=== PATIENT | male | born 1995 | race Caucasian/White ===

== ENCOUNTER 2020-06-07 17:57 | Inpatient (IN) | payer MEDICAID, OTHER ==
[2020-06-07 18:47] LABS: Amphetamine Screen,Urine Not Detected (NotDetected); Barbiturate Screen,Urine Not Detected (NotDetected); Benzodiazepines Screen,Urine Not Detected (NotDetected); Cocaine Screen,Urine Not Detected (NotDetected); Methadone Screen, Urine Not Detected (NotDetected); Opiate Screen,Urine Not Detected (NotDetected); Oxycodone Screen, Urine Not Detected (NotDetected); Phencyclidine Screen,Urine Not Detected (NotDetected); Tricyclic Antidepressant,Urine Not Detected (NotDetected); Urn Cannabinoid Scrn Detected (NotDetected)
[2020-06-07] MEDS ORDERED: ZIPRASIDONE 20 MG VIAL IM PRN (20:42)
[2020-06-07] MEDS ORDERED: LORazepam 1 MG TAB PO PRN (20:42)
[2020-06-07] MEDS ORDERED: MAGNESIUM HYDROXIDE 2,400 MG/10 ML CUP PO PRN (20:42)
[2020-06-07] MEDS ORDERED: MAG HYDROX/AL HYDROX/SIMETH 30 ML CUP PO PRN (20:42)
[2020-06-07] MEDS ORDERED: ACETAMINOPHEN TAB 325 MG TAB PO PRN (20:42)
[2020-06-07] MEDS ORDERED: LORazepam 2 MG/ML INJ IM PRN (20:45)
--- NOTE | 2020-06-07 21:39 | ED ---
Psych HPI - General Chief Complaint: Psychiatric Symptoms Stated Complaint: EPS eval Time Seen by Provider: 06/07/20 18:28 Source: patient, police Mode of arrival: ambulatory - History of Present Illness Initial Comments: Patient is a 25-year-old male presents emergency department after he was found inside someone's house. The homeowner did not know who the patient was and the refore called police. Police then brought the patient into the emergency room for evaluation. Patient states that he does know depression. States that it is his "his lover". States he "followed his heart to find him." Patient states that he recently moved here from [place]. Admits to smoking marijuana however does not use any other drugs. Denies a psychiatric history however the patient was hospitalized at [facility] for the past 90 days. Patient states that he communicates telepathically. States that we all have these abilities - Related Data Home Medications Medication Instructions Recorded Confirmed No Known Home Medications 06/07/20 06/07/20 Allergies Allergy/AdvReac Type Severity Reaction Status Date / Time No Known Allergies Allergy Verified 06/07/20 19:06 Review of Systems ROS Statement: Those systems with pertinent positive or pertinent negative responses have been documented in the HPI. ROS Other: All systems not noted in ROS Statement are negative. Past Medical History Past Medical History: No Reported History History of Any Multi-Drug Resistant Organisms: None Reported Past Surgical History: No Surgical Hx Reported Past Psychological History: No Psychological Hx Reported Smoking Status: Current every day smoker Past Alcohol Use History: Occasional Past Drug Use History: Marijuana General Exam Limitations: no limitations Course Vital Signs 06/07/20 18:00 Temperature 98.2 F Pulse Rate 100 Respiratory 16 Rate Blood Pressure 161/105 O2 Sat by Pulse 99 Oximetry Medical Decision Making - Medical Decision Making Upon arrival the patient is placed into room 24. A thorough evaluation was performed. Patient is petitioned. Alejandra her vacation. Patient does require admission. He was then taken to floor in stable condition - Lab Data Lab Results 06/07/20 Range/Units 18:16 Urine Opiates Screen Not Detected (NotDetected) Ur Oxycodone Screen Not Detected (NotDetected) Urine Methadone Screen Not Detected (NotDetected) Ur Propoxyphene Screen Not Detected (NotDetected) Ur Barbiturates Screen Not Detected (NotDetected) U Tricyclic Antidepress Not Detected (NotDetected) Ur Phencyclidine Scrn Not Detected (NotDetected) Ur Amphetamines Screen Not Detected (NotDetected) U Methamphetamines Scrn Not Detected (NotDetected) U Benzodiazepines Scrn Not Detected (NotDetected) Urine Cocaine Screen Not Detected (NotDetected) U Marijuana (THC) Screen Detected H (NotDetected)
--- NOTE | 2020-06-08 00:38 | P.MDCNMH ---
History of Present Illness H&P Date: 06/07/20 Chief Complaint: medical evaluation 25 year old male with no significant past medical history patient claims that there is nothing wrong with him, and that he is just discovering new abilities, since a spiritual snake has got into his eyes. per ED notes, he was found at some random persons house,, who notified police to pick the patient up. patient claims that he followed some telepathic clues to find someone. patient at this time denies any medical complaints and claims that it is a mistake to keep him here. he denies any fever, chills, nausea ,vomiting, SOB, chest pain, or abd pain . Review of Systems Pertinent positives as noted in HPI. All other systems were reviewed and are negative Past Medical History Past Medical History: No Reported History Additional Past Medical History / Comment(s): Blind in right eye History of Any Multi-Drug Resistant Organisms: None Reported Past Surgical History: No Surgical Hx Reported Smoking Status: Current every day smoker - Past Family History FAMILY Family Medical History: No Reported History Medications and Allergies Home Medications Medication Instructions Recorded Confirmed Type No Known Home Medications 06/07/20 06/07/20 History Allergies Allergy/AdvReac Type Severity Reaction Status Date / Time No Known Allergies Allergy Verified 06/07/20 19:06 Physical Exam Vitals: Vital Signs Temp Pulse Pulse Resp BP BP Pulse Ox 06/07/20 21:34 98.2 F 96 18 124/86 06/07/20 18:00 98.2 F 100 16 161/105 99 Intake and Output 06/07/20 06/07/20 06/08/20 14:59 22:59 06:59 Other: Weight 76.657 kg Constitutional: No acute distress, conversant, pleasant Eyes: Anicteric sclerae, moist conjunctiva, Pupils equal round reactive to light ENMT: NC/AT Oropharynx clear, no erythema, OR exudates Neck: Supple, FROM, no masses, or JVD No carotid bruits No thyromegaly Lungs: Clear to auscultation Clear to percussion Normal respiratory effort, no accessory muscle use Cardiovascular: Heart regular in rate and rhythm, No murmurs, gallops, or rubs No peripheral edema Abdominal: Soft Nontender, no guarding, rebound or rigidity Abdomen moving with respiration Normoactive bowel sounds No hepatomegaly, No splenomegaly No palpable mass No abdominal wall hernia noted Skin: Normal temperature, tone, texture, turgor No induration No subcutaneous nodules No rash, lesions No ulcers Extremities: No digital cyanosis No clubbing Pedal pulses intact and symmetrical Radial pulses intact and symmetrical No calf tenderness Psychiatric: Alert and oriented to person, place and time Appropriate affect fair judgement Neuro Muscles Strength 5/5 in all 4 extremities Sensation to light touch grossly present throughout Cranial nerves II-XII grossly intact No focal sensory deficits Lymphatics: no palpable cervical or supraclavicular , or inguinal lymph nodes Cranial Nerve Examination - Cranial Nerves Cranial Nerve II- Optic: Intact Cranial Nerve III- Oculomotor: Intact Cranial Nerve IV- Trochlear: Intact Cranial Nerve V- Trigeminal: Intact Cranial Nerve - Abducens: Intact Cranial Nerve VII- Facial: Intact Cranial Nerve VIII- Auditory: Intact Cranial Nerve IX- Glossopharyngeal: Intact Cranial Nerve X- Vagus: Intact Cranial Nerve XI- Accessory: Intact Cranial Nerve XII- Hypoglossal: Intact Results Labs: Abnormal Lab Results - Last 24 Hours (Table) 06/07/20 Range/Units 18:16 U Marijuana (THC) Screen Detected H (NotDetected) Assessment and Plan Assessment: DELUSIONAL ideation management per psych tobacco smoking counseled to quit smoking nicotine replacement therapy offered follow up labs Thank you for allowing us to participate in the care of this patient. We will follow peripherally. Do not hesitate to contact us with questions. Someone can be reached from the [facility] hospitalist group at all hours of the day at [phone].
[2020-06-08] MEDS ORDERED: NICOTINE POLACRILEX 2 MG GUM BUCCAL PRN (11:37)
--- NOTE | 2020-06-08 11:38 | P.HP ---
Psychiatric H&P - . H&P Date: 06/08/20 History & Physical: Allergies Allergy/AdvReac Type Severity Reaction Status Date / Time No Known Allergies Allergy Verified 06/07/20 19:06 Vital Signs Temp 98.4 F 06/08/20 06:23 Pulse 86 06/08/20 06:23 Resp 16 06/08/20 06:23 BP 121/76 06/08/20 06:23 Pulse Ox 99 06/07/20 18:00 Intake & Output 06/07/20 06/08/20 06/08/20 18:59 06:59 18:59 Weight 74.843 kg 76.657 kg Laboratory Last Values Urine Opiates Screen Not Detected (NotDetected) 06/07/20 18:16 Ur Oxycodone Screen Not Detected (NotDetected) 06/07/20 18:16 Urine Methadone Screen Not Detected (NotDetected) 06/07/20 18:16 Ur Propoxyphene Screen Not Detected (NotDetected) 06/07/20 18:16 Ur Barbiturates Screen Not Detected (NotDetected) 06/07/20 18:16 U Tricyclic Antidepress Not Detected (NotDetected) 06/07/20 18:16 Ur Phencyclidine Scrn Not Detected (NotDetected) 06/07/20 18:16 Ur Amphetamines Screen Not Detected (NotDetected) 06/07/20 18:16 U Methamphetamines Scrn Not Detected (NotDetected) 06/07/20 18:16 U Benzodiazepines Scrn Not Detected (NotDetected) 06/07/20 18:16 Urine Cocaine Screen Not Detected (NotDetected) 06/07/20 18:16 U Marijuana (THC) Screen Detected (NotDetected) H 06/07/20 18:16 06/08/20 11:30 IDENTIFYING DATA: Patient is a 25-year-old male who currently lives alone in his car and has no kids and is unmarried. HPI: Patient presented to the hospital yesterday after he was petitioned and brought in by a border police. Patient was apparently found inside someone's house and the homeowner didn't know who he was and called the police. Patient apparently was bizarre in the ER and spoke about "communicating telepathically". Patient was positive for marijuana in his urine drug screen. Patient was admitted involuntarily on petition and certificate. 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 Patient appeared to be responding to internal stimuli staring around the room at different objects. He states that "I'm working" when asked why he is looking at different parts of the room. Patient had bizarre blank stares at telegraphic typewriter installer. He was somewhat irritable and was illogical, bizarre. He had loose associations. He spoke about "following the voice from my heart to my love". Which is why he was led to the house that he got too. He states that the voice was "giving me directions "left "right". He states that he was trying to find "Jet" and claims that he found him but was told that he had to wait. He states that he does not know why he is in the hospital and was asking about discharge. Patient had poor insight and judgment. He spoke about telegraphic typewriter installer "being in my head" and also communicating telepathically through a seed. He states that his aunt is in love with him. He also claims that he isn't "alien from Eduardo's". He claims his sleep has been poor and appetite is poor. Patient denies any suicidal or homicidal ideations intent or plan. At this time patient denies any auditory or visual hallucinations. Patient admits to using marijuana daily and also claims that he smokes cigarettes daily. He claims that he uses occasional alcohol. He denies any other recreational drug use. PAST PSYCHIATRIC HISTORY: Patient states that he has had several other psychiatric admissions however only spoke about being admitted to "[facility] when I was younger". Patient listed several medications in the past however claims that he is not on any medications. He claims that he used to take lithium, Risperdal, Concerta and Ativan. Patient denies any psychiatric outpatient follow-up. Patient claimed that he has had multiple suicide attempts in the past. PMH:denies ALLERGIES: as per EMR CHEMICAL DEPENDENCY HISTORY: as per HPI FAMILY PSYCHIATRIC/SUBSTANCE USE HISTORY: The same that his mother has mental illness however does not know what. SOCIAL HISTORY: Patient was born and raised in [facility] and then claims that he does not know where he lives now. Patient claims that he lives in his car alone is unmarried has no kids. 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 He states that he was in retirement when he was 20 years old for drug- related charges. MENTAL STATUS EXAM: General Appearance: Patient appears to be stated age is tall/thin, alert, responding to internal stimuli, irritable. Patient appears to have poor hygiene and grooming. Behavior: Patient is seated without any agitated behavior. Irritable. Bizarre Speech: Patient's speech is fluent and nonpressured. Mood/Affect: Patient reports their mood is "okay", affect is congruent and constricted. Suicidality/Homicidality: Patient denies having any homicidal ideation intent or plan. Denies any suicidal ideations intent or plan Perceptions: Patient denies any visual hallucinations and denies any auditory hallucinations Though content/process: Patient endorses several delusions, bizarre content, illogical loose associations. Memory and concentration: AOX3, grossly intact for the purposes of this session. Can spell "WORLD" backwards Judgment and insight: poor STRENGTHS/WEAKNESSES: strength is that patient is resilient. Weakness is that patient has poor judgment and is impulsive INTELLECT: average IMPRESSIONS: Psychosis unspecified, rule out cannabis-induced psychosis Cannabis use disorder He continued dependence PLAN: -Patient is admitted under involuntary status to [facility] for stabilization of psychiatric symptoms and safety. Patient has signed adult voluntary form and medication consent and is placed in patient's chart. A second certification was completed and along with petition will be filed for court. -Medications : Will start patient on Risperdal 1 mg twice a day for psychosis. -Ativan and Geodon PRN for agitation/aggression -Patient was counselled on substance abuse and patient claims that "I don't need to do drugs anymore". -Patient was informed of the risks, benefits and side effects of the medication and patient verbally consented to taking the medications. Patient signed med consent form and was placed in chart. -Internal Medicine consult to perform medical evaluation and physical. -NRT - nicotine gum -SW on board for discharge planning. Encourage patient to participate in groups to work on coping skills. 06/08/20 11:38
[2020-06-08 12:02] LABS: Basophils % (A) 0 %; Eosinophils # (A) 0.1 k/uL (0-0.7); Eosinophils % (A) 1 %; HCT 49.7 % (39.0-53.0); HGB 16.2 gm/dL (13.0-17.5); Lymphocytes # (A) 1.8 k/uL (1.0-4.8); Lymphocytes % (A) 21 %; MCH 28.3 pg (25.0-35.0); MCHC 32.6 g/dL (31.0-37.0); MCV 86.6 fL (80.0-100.0); Mean Platelet Volume 7.3; Monocytes # (A) 0.6 k/uL (0-1.0); Monocytes % (A) 7 %; Neutrophils # (A) 6.2 k/uL (1.3-7.7); Neutrophils % (A) 70 %; Platelet Count 245 k/uL (150-450); RBC 5.74 m/uL (4.30-5.90); RDW 13.4 % (11.5-15.5); WBC 8.8 k/uL (3.8-10.6)
[2020-06-08] MEDS: risperiDONE 1 MG TAB PO SCH ×2 (12:18→20:16)
[2020-06-08 12:22] LABS: ALT 12 U/L (4-49); AST 21 U/L (17-59); African American GFR (CKD) >90 (>60 ml/min/1.73 sqM); Albumin 5.3 g/dL (3.5-5.0); Alkaline Phosphatase 67 U/L (38-126); Anion Gap 11 mmol/L; Blood Urea Nitrogen 13 mg/dL (9-20); Calcium 10.2 mg/dL (8.4-10.2); Carbon Dioxide 24 mmol/L (22-30); Chloride 102 mmol/L (98-107); Glucose 100 mg/dL (74-99); Non-African American GFR(CKD) >90 (>60 ml/min/1.73 sqM); Sodium 137 mmol/L (137-145); Total Bilirubin 1.4 mg/dL (0.2-1.3); Total Protein 8.1 g/dL (6.3-8.2)
[2020-06-08 13:07] LABS: Cholesterol 136 mg/dL (<200); HDL Cholesterol 46 mg/dL (40-60); LDL Cholesterol,Calculated 73 mg/dL (0-99); Triglycerides 85 mg/dL (<150)
[2020-06-08 23:13] LABS: Hemoglobin A1C 4.6 % (4.0-6.0)
[2020-06-09] MEDS: risperiDONE 1 MG TAB PO SCH (08:14)
--- NOTE | 2020-06-09 10:32 | P.PN ---
Progress Note - Text Progress Note Date: 06/09/20 Interval History: Patient was seen wandering the hallways and was directable and agreeable to sp naseemk with justowriter operator in the office. Patient claims that he has not been going to groups and claims that "it's not can help me" and also states that he knows everything in the groups already. He offered no new complaints except for feeling mildly lethargic today. He believes that the medications are making her feel calmer and was agreeable to take the Risperdal at nighttime. He states that he is hearing other people's thoughts in the unit and claims that he is also hearing justowriter operator's thoughts "telepathically". He attempted several times to stay out loud what justowriter operator was thinking. He claims that his mood is "fine" and his affect was constricted. He denies any anxiety today. He states that he slept well last night. He continues to have poor insight and judgment. At this time patient denies any suicidal or homical ideations, intent or plan. Patient denies any auditory, visual hallucinations. Mental Status Exam: General Appearance: Patient appears to be stated age is tall/thin, alert, i rritable. Patient appears to have poor hygiene and grooming. Behavior: Patient is seated without any agitated behavior. Irritable. Bizarre. not responding to internal stimuli today. Speech: Patient's speech is fluent and nonpressured. Mood/Affect: Patient reports their mood is "ok", affect is congruent and constricted. Suicidality/Homicidality: Patient denies having any homicidal ideation intent or plan. Denies any suicidal ideations intent or plan Perceptions: Patient denies any visual hallucinations and denies any auditory hallucinations Though content/process: Patient endorses several delusions, bizarre content, illogical loose associations. Memory and concentration: AOX3, grossly intact for the purposes of this session Judgment and insight: poor Assessment Psychosis unspecified, rule out cannabis-induced psychosis versus schizophrenia Cannabis use disorder He continued dependence Plan: -Patient continues to meet criteria for inpatient psychiatric admission for symptom stabilization and safety. Patient has not signed adult voluntary form and medication consent and was placed in patient's chart. currently awaiting deferral date and full court hearing date. -Medications: Change Risperdal to 2 mg daily at bedtime for psychosis. -When necessary Ativan and Geodon for agitation/aggression. -NRT - nicotine gum -SW on board for discharge planning. Encouraged the patient to participate in milieu.
[2020-06-09] MEDS ORDERED: risperiDONE 2 MG TAB PO SCH (21:00)
[2020-06-10 07:01] VITALS: RESP 16
--- NOTE | 2020-06-10 11:23 | P.PN ---
Progress Note - Text Progress Note Date: 06/10/20 Interval History: Patient was seen taking part in group today and was directable and agreeable to speak with poem writer in the office. Patient offered no new complaints today. He states he is able to sleep better last night. He states that he feels less lethargic during the day. He appears to have mildly improved and in his insight and judgment. When asked about his telepathic medication patient states that "I don't believe in it anymore". He claims that he has been trying to go to groups and per to spend this as he can. He claims that his mood is "fine" and his affect was constricted. He denies any anxiety today. He states that he slept well last night. He continues to have poor insight and judgment. At this time patient denies any suicidal or homical ideations, intent or plan. Patient denies any auditory, visual hallucinations. Mental Status Exam: General Appearance: Patient appears to be stated age is tall/thin, alert, more cooperative today. Patient appears to have improving hygiene and grooming. Behavior: Patient is seated without any agitated behavior. Less bizarre and attempts to cooperate. Speech: Patient's speech is fluent and nonpressured. Mood/Affect: Patient reports their mood is "good", affect is congruent and constricted. Suicidality/Homicidality: Patient denies having any homicidal ideation intent or plan. Denies any suicidal ideations intent or plan Perceptions: Patient denies any visual hallucinations and denies any auditory hallucinations Though content/process: Patient is less delusional today, preoccupied with discharge. Memory and concentration: AOX3, grossly intact for the purposes of this session Judgment and insight: poor, improving mildly Assessment Psychosis unspecified, rule out cannabis-induced psychosis versus schizophrenia Cannabis use disorder He continued dependence Plan: -Patient continues to meet criteria for inpatient psychiatric admission for symptom stabilization and safety. Patient has not signed adult voluntary form and medication consent and was placed in patient's chart. currently awaiting deferral date and full court hearing date. -Medications: Increased Risperdal to 2.5 mg daily at bedtime for psychosis. -When necessary Ativan and Geodon for agitation/aggression. -NRT - nicotine gum -SW on board for discharge planning. Encouraged the patient to participate in milieu. Likely discharge early next week.
[2020-06-10] MEDS ORDERED: risperiDONE 1 MG TAB PO SCH (21:00)
--- NOTE | 2020-06-11 10:10 | P.PN ---
Progress Note - Text Progress Note Date: 06/11/20 Interval History: Patient was seen taking part in group today and was directable and agreeable to speak with law writer in the office. Patient offered no new complaints today he states that he is doing better overall. He claims that his thoughts are calmer and he feels that he is thinking more "clearly".. He states he is able to sleep better last night. He states that he feels less lethargic during the day. He appears to have mildly improved and in his insight and judgment. She spoke vaguely about "changing the world" and also that he wants to "help people". He also states that he helped law writer in his brain and when asked how he today states that "I went into your brain and fixed you".. He claims that he has been trying to go to groups and per to spend this as he can. He claims that his mood is "fine" and his affect was constricted. He denies any anxiety today. He states that he slept well last night. At this time patient denies any suicidal or homical ideations, intent or plan. Patient denies any auditory, visual hallucinations. Mental Status Exam: General Appearance: Patient appears to be stated age is tall/thin, alert, more cooperative today. Patient appears to have improving hygiene and grooming. Behavior: Patient is seated without any agitated behavior. Less bizarre and attempts to cooperate. Speech: Patient's speech is fluent and nonpressured. Mood/Affect: Patient reports their mood is "ok", affect is congruent and constricted. Suicidality/Homicidality: Patient denies having any homicidal ideation intent or plan. Denies any suicidal ideations intent or plan Perceptions: Patient denies any visual hallucinations and denies any auditory hallucinations Though content/process: Patient is less delusional today, more logical, poverty of content. Memory and concentration: AOX3, grossly intact for the purposes of this session Judgment and insight: poor, improving mildly Assessment Psychosis unspecified, rule out cannabis-induced psychosis versus schizophrenia Cannabis use disorder He continued dependence Plan: -Patient continues to meet criteria for inpatient psychiatric admission for symptom stabilization and safety. Patient has not signed adult voluntary form and medication consent and was placed in patient's chart. currently awaiting deferral date and full court hearing date. -Medications: Increased Risperdal to 3 mg daily at bedtime for psychosis. -When necessary Ativan and Geodon for agitation/aggression. -NRT - nicotine gum -SW on board for discharge planning. Encouraged the patient to participate in milieu. Likely discharge early next week.
[2020-06-11] MEDS: risperiDONE 1 MG TAB PO SCH (20:16)
[2020-06-12 06:34] VITALS: BP 137/79; PULSE 77; TEMP 98.1
--- NOTE | 2020-06-12 11:57 | P.PN ---
Progress Note - Text Progress Note Date: 06/12/20 Interval History: Patient was seen wandering always this morning and was directable and agreeable to speak with medical writer in the office. Patient offered no new complaints today. He states that he is doing better overall. He appears to be less bizarre and is more goal oriented and have improvement in his thought process. He states he is able to sleep better last night on the current medications. He appears to have mildly improved and in his insight and judgment. He spoke more today about his discharge plan how he needs to go and get his car from the impound and also home will be going to his friend's house to see if he can stay with them. He claims that he has been trying to go to groups and per to spend this as he can. He claims that his mood is "fine" and his affect was constricted. He denies any anxiety today. At this time patient denies any suicidal or homical ideations, intent or plan. Patient denies any auditory, visual hallucinations. Mental Status Exam: General Appearance: Patient appears to be stated age is tall/thin, alert, more cooperative today. Patient appears to have improving hygiene and grooming. Behavior: Patient is seated without any agitated behavior. Less bizarre and attempts to cooperate. Speech: Patient's speech is fluent and nonpressured. Mood/Affect: Patient reports their mood is "fine", affect is congruent and constricted. Suicidality/Homicidality: Patient denies having any homicidal ideation intent or plan. Denies any suicidal ideations intent or plan Perceptions: Patient denies any visual hallucinations and denies any auditory hallucinations Though content/process: Patient is less delusional today, more logical, poverty of content. Memory and concentration: AOX3, grossly intact for the purposes of this session Judgment and insight: poor, improving mildly Assessment Psychosis unspecified, rule out cannabis-induced psychosis versus schizophrenia Cannabis use disorder He continued dependence Plan: -Patient continues to meet criteria for inpatient psychiatric admission for symptom stabilization and safety. Patient has not signed adult voluntary form and medication consent and was placed in patient's chart. currently awaiting deferral date and full court hearing date. -Medications: Continue with Risperdal to 3 mg daily at bedtime for psychosis. -When necessary Ativan and Geodon for agitation/aggression. -NRT - nicotine gum -SW on board for discharge planning. Encouraged the patient to participate in milieu. Likely discharge tomorrow if patient is able to sign deferral.
[2020-06-12] MEDS: risperiDONE 1 MG TAB PO SCH (20:03)
--- NOTE | 2020-06-13 09:23 | P.DS ---
Providers Date of admission: 06/07/20 20:38 Expected date of discharge: 06/13/20 Attending physician: Steven Ha MD Consults: 06/07/20 20:42 Consult Physician Routine Consulting Provider: Kady Fernandez Consult Reason/Comments: medical management Do you want consulting provider notified?: Yes Primary care physician: Stated None - Discharge Diagnosis(es) (1) Unspecified psychosis Current Visit: Yes Status: Acute Priority: High (2) Cannabis use disorder, mild, abuse Current Visit: Yes Status: Acute Priority: Medium (3) Nicotine dependence Current Visit: Yes Status: Acute Priority: Low Hospital Course: Admission HPI: Patient is a 25-year-old male who currently lives alone in his car and has no kids and is unmarried. Patient presented to the hospital yesterday after he was petitioned and brought in by a police records clerk. Patient was apparently found inside someone's house and the homeowner didn't know who he was and called the police. Patient apparently was bizarre in the ER and spoke about "communicating telepathically". Patient was positive for marijuana in his urine drug screen. Patient was admitted involuntarily on petition and certificate. 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 Patient appeared to be responding to internal stimuli staring around the room at different objects. He states that "I'm working" when asked why he is looking at different parts of the room. Patient had bizarre blank stares at gag writer. He was somewhat irritable and was illogical, bizarre. He had loose associations. He spoke about "following the voice from my heart to my love". Which is why he was led to the house that he got too. He states that the voice was "giving me directions "left "right". He states that he was trying to find "Jet" and claims that he found him but was told that he had to wait. He states that he does not know why he is in the hospital and was asking about discharge. Patient had poor insight and judgment. He spoke about gag writer "being in my head" and also communicating telepathically through a seed. He states that his aunt is in love with him. He also claims that he isn't "alien from Eduardo's". He claims his sleep has been poor and appetite is poor. Patient denies any suicidal or homicidal ideations intent or plan. At this time patient denies any auditory or visual hallucinations. Patient admits to using marijuana daily and also claims that he smokes cigarettes daily. He claims that he uses occasional alcohol. He denies any other recreational drug use. Hospital course: Upon admission to the unit patient was initially bizarre and grossly delusional, responding to internal stimuli. Patient was brought up on a petition and certificate involuntarily and a second clinical certificate was filed with the court and patient ended up deferring court and agreeing to treatment on the unit. Patient got along well with other patients on the unit and followed unit protocol. Patient was compliant with the medications and denied any side effects throughout hospital course. Patient was started on Risperdal and titrated up to a dose of 3 mg daily at bedtime for psychosis. PAtient was offered long activing injection however he claims that he would prefer to take t he medications orally at this time. Patient spoke of his stressors and engaged in therapy both group and individual. Patient was also seen by medical team for history and physical exam. Throughout the course of the hospitalization patient gradually improved with regards to mood, psychosis/delusions, sleep and became future oriented with improved insight and judgment. On the day of discharge naveen ent denied any suicidal or homicidal ideations intent or plan denied any auditory or visual hallucinations. Patient endorsed wanting to live for his future and his health. The patient denied any access to guns or weapons. Patient denied any paranoia and did not endorse any delusions. Patient does have a significant history of substance abuse and was counseled on abstaining from all substances including alcohol and marijuana. Patient was offered however declined inpatient substance-abuse rehab. Patient elected to do outpatient substance use treatment programs in the community. Patient was also counseled on the medications and need for regular compliance and was encouraged to follow-up with their outpatient appointment for mental health and also for primary care. Mental status exam: General Appearance: Patient appears to be tall, thin stated age is alert, directable, and cooperative. Patient is in no acute distress and has improved hygiene and grooming Behavior: Patient is calmly seated without any agitated behavior. Speech: Patient's speech is fluent and nonpressured. Mood/Affect: Patient reports their mood is "good", affect is congruent and euthymic. Suicidality/Homicidality: Patient denies having any suicidal or homicidal ideation intent or plan. Perceptions: Patient denies any auditory or visual hallucinations. Though content/process: Goal oriented, logical. Future oriented. Memory and concentration: AOX3, grossly intact for the purposes of this session. Can spell "WORLD" backwards correctly. Judgment and insight: chronically poor, however has improved with guarded prognosis Impression: Psychosis unspecified, rule out secondary to cannabis use versus schizophrenia Cannabis use disorder, mild Nicotine dependence Plan: -Continue with discharge today as patient has improved and stabilized psychiatrically and is not currently an imminent threat to himself and/or others. -Continue medications: Continue with Risperdal 3 mg daily at bedtime for psychosis. -Patient was counseled on the need for medication compliance and appropriate follow-up at mental health and also primary care for medical issues. Patient verbalized understanding and agreed. -Social work to help arrange patient's discharge today. Patient is currently homeless and will be referred to a residential. Patient will need help recovering his car from impound. Social work also to arrange for patients follow up appointments for psychiatric care along with follow up with primary care provider. -Patient counseled on abstaining from recreational drugs and marijuana and alcohol. Was informed/educated on the adverse effects on their physical and mental health. Patient verbally agreed and understood. Patient was offered substance abuse treatment however declined at this time. -Patient was instructed to return to the hospital or seek immediate medical care if their psychiatric or medical symptoms do worsen or reoccur. Allergies Allergy/AdvReac Type Severity Reaction Status Date / Time No Known Allergies Allergy Verified 06/07/20 19:06 Laboratory Results WBC 8.8 k/uL (3.8-10.6) 06/08/20 11:33 RBC 5.74 m/uL (4.30-5.90) 06/08/20 11:33 Hgb 16.2 gm/dL (13.0-17.5) 06/08/20 11:33 Hct 49.7 % (39.0-53.0) 06/08/20 11:33 MCV 86.6 fL (80.0-100.0) 06/08/20 11:33 MCH 28.3 pg (25.0-35.0) 06/08/20 11:33 MCHC 32.6 g/dL (31.0-37.0) 06/08/20 11:33 RDW 13.4 % (11.5-15.5) 06/08/20 11:33 Plt Count 245 k/uL (150-450) 06/08/20 11:33 Neutrophils % 70 % 06/08/20 11:33 Lymphocytes % 21 % 06/08/20 11:33 Monocytes % 7 % 06/08/20 11:33 Eosinophils % 1 % 06/08/20 11:33 Basophils % 0 % 06/08/20 11:33 Neutrophils # 6.2 k/uL (1.3-7.7) 06/08/20 11:33 Lymphocytes # 1.8 k/uL (1.0-4.8) 06/08/20 11:33 Monocytes # 0.6 k/uL (0-1.0) 06/08/20 11:33 Eosinophils # 0.1 k/uL (0-0.7) 06/08/20 11:33 Basophils # 0.0 k/uL (0-0.2) 06/08/20 11:33 Sodium 137 mmol/L (137-145) 06/08/20 11:33 Potassium 4.0 mmol/L (3.5-5.1) 06/08/20 11:33 Chloride 102 mmol/L (98-107) 06/08/20 11:33 Carbon Dioxide 24 mmol/L (22-30) 06/08/20 11:33 Anion Gap 11 mmol/L 06/08/20 11:33 BUN 13 mg/dL (9-20) 06/08/20 11:33 Creatinine 0.81 mg/dL (0.66-1.25) 06/08/20 11:33 Est GFR (CKD-EPI)AfAm >90 (>60 ml/min/1.73 sqM) 06/08/20 11:33 Est GFR (CKD-EPI)NonAf >90 (>60 ml/min/1.73 sqM) 06/08/20 11:33 Glucose 100 mg/dL (74-99) H 06/08/20 11:[address] Glu mg/dL 85 06/08/20 11:33 Hemoglobin A1c 4.6 % (4.0-6.0) 06/08/20 11:33 Calcium 10.2 mg/dL (8.4-10.2) 06/08/20 11:33 Total Bilirubin 1.4 mg/dL (0.2-1.3) H 06/08/20 11:33 AST 21 U/L (17-59) 06/08/20 11:33 ALT 12 U/L (4-49) 06/08/20 11:33 Alkaline Phosphatase 67 U/L (38-126) 06/08/20 11:33 Total Protein 8.1 g/dL (6.3-8.2) 06/08/20 11:33 Albumin 5.3 g/dL (3.5-5.0) H 06/08/20 11:33 Triglycerides 85 mg/dL (<150) 06/08/20 11:33 Cholesterol 136 mg/dL (<200) 06/08/20 11:33 LDL Cholesterol, Calc 73 mg/dL (0-99) 06/08/20 11:33 HDL Cholesterol 46 mg/dL (40-60) 06/08/20 11:33 TSH 0.367 mIU/L (0.465-4.680) L 06/08/20 11:33 Urine Opiates Screen Not Detected (NotDetected) 06/07/20 18:16 Ur Oxycodone Screen Not Detected (NotDetected) 06/07/20 18:16 Urine Methadone Screen Not Detected (NotDetected) 06/07/20 18:16 Ur Propoxyphene Screen Not Detected (NotDetected) 06/07/20 18:16 Ur Barbiturates Screen Not Detected (NotDetected) 06/07/20 18:16 U Tricyclic Antidepress Not Detected (NotDetected) 06/07/20 18:16 Ur Phencyclidine Scrn Not Detected (NotDetected) 06/07/20 18:16 Ur Amphetamines Screen Not Detected (NotDetected) 06/07/20 18:16 U Methamphetamines Scrn Not Detected (NotDetected) 06/07/20 18:16 U Benzodiazepines Scrn Not Detected (NotDetected) 06/07/20 18:16 Urine Cocaine Screen Not Detected (NotDetected) 06/07/20 18:16 U Marijuana (THC) Screen Detected (NotDetected) H 06/07/20 18:16 Vital Signs Temp 98.1 F 10/26/20 06:33 Pulse 77 06/12/20 06:33 Resp 16 06/12/20 06:33 BP 137/79 06/12/20 06:33 Pulse Ox 99 06/12/20 06:33 ] Patient Condition at Discharge: Stable Plan - Discharge Summary Discharge Rx Participant: No New Discharge Prescriptions: New Nicotine Polacrilex [Nicorette] 2 mg BUCCAL Q4HR PRN 14 Days gum PRN Reason: Nicotine Cravings risperiDONE [RisperDAL] 3 mg PO HS 30 Days tab Discharge Medication List Nicotine Polacrilex [Nicorette] 2 mg BUCCAL Q4HR PRN 14 Days gum 06/13/20 [Rx] risperiDONE [RisperDAL] 3 mg PO HS 30 Days tab 06/13/20 [Rx] Follow up Appointment(s)/Referral(s): None,Stated [Primary Care Provider] - 1 Week Activity/Diet/Wound Care/Special Instructions: Activity and diet as tolerated. Avoid the use of street drugs and alcohol. Take all medications as prescribed. When you are in need of refills on your medications please contact your medical provider and/or outpatient psychiatrist to have this done. Please go to scheduled outpatient appointment for aftercare treatment. If symptoms return or become worse, call the crisis line at and/or go to the nearest emergency room for evaluation. Discharge Disposition: HOME SELF-CARE
== END 2020-06-13 13:00 | disposition home or self-care (01) | DRG 885 ==
LOC: EC 17:57 → 3MHU 20:38
PROVIDERS: ADMIT Psychiatry & Neurology Psychiatry; ATTEND Psychiatry & Neurology Psychiatry
DX: F29 Unspecified psychosis not due to a substance or known physiological condition (principal); F22 Delusional disorders; F12.10 Cannabis abuse, uncomplicated; F17.210 Nicotine dependence, cigarettes, uncomplicated; R45.87 Impulsiveness; H54.40 Blindness, one eye, unspecified eye; Z71.6 Tobacco abuse counseling; Z91.5 Personal history of self-harm; Z59.0 Homelessness; Z81.8 Family history of other mental and behavioral disorders
CPT/HCPCS: 80053; 80061; 80306; 82075; 83036; 84443; 85025; 99285

== ENCOUNTER 2020-07-06 12:57 | Inpatient (IN) | payer MEDICAID, OTHER ==
[2020-07-06 15:10] LABS: Amphetamine Screen,Urine Not Detected (NotDetected); Barbiturate Screen,Urine Not Detected (NotDetected); Benzodiazepines Screen,Urine Not Detected (NotDetected); Cocaine Screen,Urine Not Detected (NotDetected); Methadone Screen, Urine Not Detected (NotDetected); Opiate Screen,Urine Not Detected (NotDetected); Oxycodone Screen, Urine Not Detected (NotDetected); Phencyclidine Screen,Urine Not Detected (NotDetected); Tricyclic Antidepressant,Urine Not Detected (NotDetected); Urn Cannabinoid Scrn Detected (NotDetected)
--- NOTE | 2020-07-06 16:39 | ED ---
General Adult HPI - General Chief complaint: Psychiatric Symptoms Stated complaint: Mental Health Time Seen by Provider: 07/06/20 13:30 Source: patient, police, RN notes reviewed, old records reviewed Mode of arrival: ambulatory Limitations: no limitations - History of Present Illness Initial comments: 25-year-old male patient to ED for psychiatric evaluation. Patient is currently homeless. Patient reports that he is having some paranoid thoughts about the FBI, that he is on a mission and that Alex Cazares is his brother. Denies any t houghts to harm himself or others. Denies any physical complaints. Systemic: Pt denies fatigue, fever/chills, rash. Pt denies weakness, night sweats, weight loss. Neuro: Pt denies headache, visual disturbances, syncope or pre-syncope. HEENT: Pt denies ocular discharge or irritation, otalgia, rhinorrhea, pharyngitis or notable lymphadenopathy. Cardiopulmonary: Pt denies chest pain, SOB, heart palpitations, dyspnea on exertion. Abdominal/GI: Pt denies abdominal pain, n/v/d. : Pt denies dysuria, burning w/ urination, frequency/urgency. Denies new onset urinary or bowel incontinence. MSK: Pt denies myalgia, loss of strength or function in extremities. Neuro: Pt denies new onset weakness, paresthesias. - Related Data Home Medications Medication Instructions Recorded Confirmed No Known Home Medications 07/06/20 07/06/20 Allergies Allergy/AdvReac Type Severity Reaction Status Date / Time No Known Allergies Allergy Verified 07/06/20 14:02 Review of Systems ROS Statement: Those systems with pertinent positive or pertinent negative responses have been documented in the HPI. ROS Other: All systems not noted in ROS Statement are negative. Past Medical History Past Medical History: No Reported History Additional Past Medical History / Comment(s): Blind in right eye History of Any Multi-Drug Resistant Organisms: None Reported Past Surgical History: Appendectomy, Hernia Repair, Tonsillectomy Past Psychological History: No Psychological Hx Reported Smoking Status: Current every day smoker Past Alcohol Use History: Occasional Past Drug Use History: Marijuana - Past Family History FAMILY Family Medical History: No Reported History General Exam - General Exam Comments Initial Comments: Constitutional: NAD, AOX3. HEENT: NC/AT, trachea midline, neck supple, no lymphadenopathy. External ears appear normal, without discharge. Mucous membranes moist. Eyes PERRLA, EOM intact. There is no scleral icterus. No pallor noted. Cardiopulmonary: RRR, no murmurs, rubs or gallops, no JVD noted. Lungs CTAB in anterior and posterior meek. No peripheral edema. Abdominal exam: Abdomen soft and non-distended. Neuro: CN II-XII grossly intact. No nuchal rigidity. MSK: Full active ROM in upper and lower extremities Limitations: no limitations Course Vital Signs 07/06/20 13:17 Temperature 98.1 F Pulse Rate 121 H Respiratory 20 Rate Blood Pressure 143/75 O2 Sat by Pulse 99 Oximetry Medical Decision Making - Medical Decision Making 25 year old male patient to ED for psychiatric evaluation. Patient evaluated by EPS and recommended for admission. Case discussed with Dr. Henley. - Lab Data Lab Results 07/06/20 07/06/20 Range/Units 14:16 15:25 Urine Opiates Screen Not Detected (NotDetected) Ur Oxycodone Screen Not Detected (NotDetected) Urine Methadone Screen Not Detected (NotDetected) Ur Propoxyphene Screen Not Detected (NotDetected) Ur Barbiturates Screen Not Detected (NotDetected) U Tricyclic Antidepress Not Detected (NotDetected) Ur Phencyclidine Scrn Not Detected (NotDetected) Ur Amphetamines Screen Not Detected (NotDetected) U Methamphetamines Scrn Not Detected (NotDetected) U Benzodiazepines Scrn Not Detected (NotDetected) Urine Cocaine Screen Not Detected (NotDetected) U Marijuana (THC) Screen Detected H (NotDetected) Coronavirus (PCR) Not Detected (Not Detectd) Disposition Clinical Impression: Psychiatric disorder Disposition: ADMITTED IP TO THIS HOSP Condition: Serious Is patient prescribed a controlled substance at d/c from ED?: No Referrals: None,Stated [Primary Care Provider] - 1-2 days
[2020-07-06] MEDS ORDERED: MAGNESIUM HYDROXIDE 2,400 MG/10 ML CUP PO PRN (18:11)
[2020-07-06] MEDS ORDERED: LORazepam 1 MG TAB PO PRN (18:11)
[2020-07-06] MEDS ORDERED: MAG HYDROX/AL HYDROX/SIMETH 30 ML CUP PO PRN (18:11)
[2020-07-06] MEDS ORDERED: LORazepam 2 MG/ML INJ IM PRN (18:16)
[2020-07-06] MEDS ORDERED: haloperidoL 1 MG TAB PO PRN (18:17)
[2020-07-06] MEDS ORDERED: HALOPERIDOL LACTATE 5 MG/ML 1 ML VIAL IM PRN (18:18)
[2020-07-06] MEDS ORDERED: risperiDONE 1 MG TAB PO SCH (21:00)
--- NOTE | 2020-07-06 23:50 | P.PN ---
Progress Note - Text Progress Note Date: 07/06/20 Attempted to see the patient on the MHU. Patient was asleep and didn't wish to talk. Will attempt again tomorrow.
[2020-07-07] MEDS ORDERED: NICOTINE POLACRILEX 2 MG GUM BUCCAL PRN (10:31)
--- NOTE | 2020-07-07 10:32 | P.HP ---
Psychiatric H&P - . H&P Date: 07/07/20 History & Physical: Allergies Allergy/AdvReac Type Severity Reaction Status Date / Time No Known Allergies Allergy Verified 07/06/20 14:02 Vital Signs Temp 98.0 F 07/07/20 06:44 Pulse 82 07/07/20 06:44 Resp 17 07/07/20 06:44 BP 121/74 07/07/20 06:44 Pulse Ox 98 07/07/20 06:44 Intake & Output 07/06/20 07/07/20 07/07/20 18:59 06:59 18:59 Weight 74.843 kg Laboratory Last Values Urine Opiates Screen Not Detected (NotDetected) 07/06/20 14:16 Ur Oxycodone Screen Not Detected (NotDetected) 07/06/20 14:16 Urine Methadone Screen Not Detected (NotDetected) 07/06/20 14:16 Ur Propoxyphene Screen Not Detected (NotDetected) 07/06/20 14:16 Ur Barbiturates Screen Not Detected (NotDetected) 07/06/20 14:16 U Tricyclic Antidepress Not Detected (NotDetected) 07/06/20 14:16 Ur Phencyclidine Scrn Not Detected (NotDetected) 07/06/20 14:16 Ur Amphetamines Screen Not Detected (NotDetected) 07/06/20 14:16 U Methamphetamines Scrn Not Detected (NotDetected) 07/06/20 14:16 U Benzodiazepines Scrn Not Detected (NotDetected) 07/06/20 14:16 Urine Cocaine Screen Not Detected (NotDetected) 07/06/20 14:16 U Marijuana (THC) Screen Detected (NotDetected) H 07/06/20 14:16 Coronavirus (PCR) Not Detected (Not Detectd) 07/06/20 15:25 07/07/20 10:19 IDENTIFYING DATA: Patient is a 25-year-old male who currently is homeless and has no kids and is unmarried. HPI: Patient presented to the hospital yesterday after after being brought in by the police and according to ER report patient was exhibiting paranoid thoughts about the FBI. ER report also states that patient was on a "mission" and that he believe that Alex Cazares was his brother. Patient was recently discharged from the mental health unit one month ago. Patient claims that after he left the unit he has been "wandering around" the city and state that he was not able to find his car. He also claims that he has been staying at different hotel rooms and sometimes on the streets. Patient states that he was "scared of being lost" and ended up asking the police for help and states that "then they brought me to the hospital". He claims that he only wanted to get a hotel room and did not want to come to the hospital. He admitted to not taking any medications as he states that he went to the counselor for his follow-up appointment and she told him that "you're paperwork is fake and you dont need to take the medications". She then became more paranoid with the comic writer and became more hostile and argumentative. And he looked at comic writer's very suspiciously throughout the conversation. Patient admitted to smoking marijuana however stated that "it's none of your business what I should be doing". Patient also mentioned that his urine drug screen was positive for marijuana because "somebody must have implemented it into my urine to set me up". Patient has poor insight and poor judgment and also low frustration tolerance. He claims his sleep has been poor and appetite is poor. Patient denies any suicidal or homicidal ideations intent or plan. At this time patient denies any auditory or visual hallucinations. Patient admits to using marijuana daily and also claims that he smokes cigarettes daily. He denies any other recreational drug use. PAST PSYCHIATRIC HISTORY: Patient states that he has had several other psychiatric admissions, last psychiatric admission was 1 month ago in May 2020 on the mental health unit. Patient listed several medications in the past however claims that he is not taking any medications at this time. Patient was previously on Risperdal 3 mg daily at bedtime on his last admission. Patient claimed that he follows up at [facility]. Patient claimed that he has had multiple suicide attempts in the past. PMH:denies ALLERGIES: as per EMR CHEMICAL DEPENDENCY HISTORY: as per HPI FAMILY PSYCHIATRIC/SUBSTANCE USE HISTORY: The same that his mother has mental illness however does not know what. SOCIAL HISTORY: Patient was born and raised in [facility] and then claims that he does not know where he lives now. Patient claims that he is currently homeless, is unmarried has no kids. 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 He states that he was in prison when he was 20 years old for drug- related charges. MENTAL STATUS EXAM: General Appearance: Patient appears to be stated age is tall/thin, alert, uncooperative, irritable and paranoid. Patient appears to have poor hygiene and grooming. Behavior: Patient is seated without any agitated behavior. Irritable. Paranoid Speech: Patient's speech is fluent and nonpressured. Mood/Affect: Patient reports their mood is "fine", affect is congruent and constricted. Suicidality/Homicidality: Patient denies having any homicidal ideation intent or plan. Denies any suicidal ideations intent or plan Perceptions: Patient denies any visual hallucinations and denies any auditory hallucinations Though content/process: Patient endorses significant paranoia, bizarre content, illogical loose associations. Memory and concentration: AOX3, grossly intact for the purposes of this session. Can spell "WORLD" backwards Judgment and insight: poor STRENGTHS/WEAKNESSES: strength is that patient is resilient. Weakness is that patient has poor judgment and is impulsive INTELLECT: average IMPRESSIONS: Psychosis unspecified, rule out cannabis-induced psychosis versus schizophrenia Cannabis use disorder Nicotine dependence PLAN: -Patient is admitted under involuntary status as he is currently on a deferral from the previous admission, to MHU for stabilization of psychiatric symptoms and safety. Patient has signed medication consent and is placed in patient's chart. Will be filing the demand for hearing as patient has been non compliant with meds. -Medications : Will start patient on Invega 3mg QHS for psychosis. -Ativan and Geodon PRN for agitation/aggression -Patient was counselled on substance abuse, patient was fairly superficial about it. -Patient was informed of the risks, benefits and side effects of the medication and patient verbally consented to taking the medications. Patient signed med consent form and was placed in chart. -Internal Medicine consult to perform medical evaluation and physical. -NRT - nicotine gum -SW on board for discharge planning. Encourage patient to participate in groups to work on coping skills. will await demand for hearing date. 07/07/20 10:31
[2020-07-07 10:40] LABS: Basophils % (A) 0 %; Eosinophils # (A) 0.2 k/uL (0-0.7); Eosinophils % (A) 3 %; HCT 45.3 % (39.0-53.0); HGB 15.1 gm/dL (13.0-17.5); Lymphocytes # (A) 1.2 k/uL (1.0-4.8); Lymphocytes % (A) 19 %; MCH 28.8 pg (25.0-35.0); MCHC 33.3 g/dL (31.0-37.0); MCV 86.6 fL (80.0-100.0); Mean Platelet Volume 6.8; Monocytes # (A) 0.5 k/uL (0-1.0); Monocytes % (A) 7 %; Neutrophils # (A) 4.6 k/uL (1.3-7.7); Neutrophils % (A) 69 %; Platelet Count 219 k/uL (150-450); RBC 5.24 m/uL (4.30-5.90); RDW 12.7 % (11.5-15.5); WBC 6.7 k/uL (3.8-10.6)
[2020-07-07 10:48] LABS: ALT 15 U/L (4-49); AST 26 U/L (17-59); African American GFR (CKD) >90 (>60 ml/min/1.73 sqM); Albumin 4.5 g/dL (3.5-5.0); Alkaline Phosphatase 70 U/L (38-126); Anion Gap 6 mmol/L; Blood Urea Nitrogen 17 mg/dL (9-20); Calcium 9.5 mg/dL (8.4-10.2); Carbon Dioxide 29 mmol/L (22-30); Chloride 103 mmol/L (98-107); Glucose 96 mg/dL (74-99); Non-African American GFR(CKD) >90 (>60 ml/min/1.73 sqM); Potassium 4.7 mmol/L (3.5-5.1); Sodium 138 mmol/L (137-145); Total Bilirubin 0.7 mg/dL (0.2-1.3); Total Protein 7.1 g/dL (6.3-8.2)
[2020-07-07] MEDS: ACETAMINOPHEN TAB 325 MG TAB PO PRN ×2 (11:22→17:47)
[2020-07-07] MEDS: PALIPERIDONE 3 MG TAB.ER.24 PO SCH (21:11)
--- NOTE | 2020-07-07 22:06 | P.CONS ---
History of Present Illness - Reason for Consult Consult date: 07/07/20 - History of Present Illness Patient is a 25-year-old homeless male who had presented to the emergency room with grandiose delusions and paranoid behavior. Patient was admitted to the mental health unit where he was seen and evaluated. Patient reports that he is the center of the universe and that all things pass through him and are around him. He denied any physical complaints. Reported not taking any medications at home. Denied chest pain, shortness of fever, chills, nausea, vomiting, abdominal pain, or diarrhea. Laboratory evaluation from the emergency room was reviewed and was remarkable only for marijuana. Review of Systems Pertinent positives and negatives as discussed in HPI, a complete review of systems was performed and all other systems are negative. Past Medical History Past Medical History: No Reported History Additional Past Medical History / Comment(s): Blind in right eye History of Any Multi-Drug Resistant Organisms: None Reported Past Surgical History: Appendectomy, Hernia Repair, Tonsillectomy Past Psychological History: No Psychological Hx Reported Smoking Status: Current every day smoker Past Alcohol Use History: Occasional Past Drug Use History: Marijuana - Past Family History FAMILY Family Medical History: No Reported History Medications and Allergies Home Medications Medication Instructions Recorded Confirmed Type No Known Home Medications 07/06/20 07/06/20 History Allergies Allergy/AdvReac Type Severity Reaction Status Date / Time No Known Allergies Allergy Verified 07/06/20 14:02 Physical Exam Vitals: Vital Signs Temp Pulse Resp BP Pulse Ox 07/07/20 18:42 97.9 F 07/07/20 11:54 97.2 F L 07/07/20 06:44 98.0 F 82 17 121/74 98 General: non toxic, no distress, appears at stated age, normal weight Derm: no unusual rashes/lesions no unusual ecchymoses, warm, dry Head: atraumatic, normocephalic, symmetric Eyes: EOMI, no lid lag, anicteric sclera, pupils equal round reactive to light ENT: Nose and ears atraumatic, no thrush, no pharyngeal erythema Neck: No thyromegaly, no cervical lymphadenopathy, trachea midline, supple Mouth: no lip lesion, mucus membranes moist Cardiovascular: S1S2 reg, no murmur, positive posterior tibial pulse bilateral, no edema, capillary refill less than 2 seconds Lungs: CTA bilateral, no rhonchi, no rales , no accessory muscle use Abdominal: soft, nontender to palpation, no guarding, no appreciable organomegaly, normal bowel sounds Ext: no gross muscle atrophy, muscle strength 5 out of 5 in all 4 extremities grossly, no contractures, Neuro: CN II-XI grossly intact, light touch intact all 4 extremities, finger to nose within normal limits, Psych: Alert, oriented, grandiose delusions Results CBC & Chem 7: 07/07/20 10:18 07/07/20 10:18 Assessment and Plan Plan: Marijuana abuse -Advised on the importance of cessation 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 We will follow peripherally. Do not hesitate to contact us with questions. Someone can be reached from the [facility] hospitalist group at all hours of the day at [phone].
[2020-07-07] MEDS: MELATONIN 5 MG TABLET PO PRN (22:45)
--- NOTE | 2020-07-08 11:03 | P.PN ---
Progress Note - Text Progress Note Date: 07/08/20 Interval History: Patient was seen sitting in the [facility] watching television. Patient was directable and agreeable to speak with board writer this morning. She appeared to be mildly less paranoid today however continues to be delusional at times and spoke bizarrely about other patients and also having mistrust in his medications. He states that he did take the medications last night and denied any adverse effects from it. He states that he wants to be discharged today. It was expected to patient about the court process and that he needs to speak with the drawing kiln supervisor and a demand for hearing was filed. He claims that his mood is "fine" and was constricted and his affect. He denies any anxiety today. At this time patient denies any suicidal or homical ideations, intent or plan. Patient denies any auditory, visual hallucinations. Patient denies any side effects from the medications and has been compliant with meds. Mental Status Exam: General Appearance: Patient appears to be stated age is tall/thin, alert, mildly paranoid today however attempts to cooperate. Patient appears to have improving hygiene and grooming. Behavior: Patient is seated without any agitated behavior. Paranoid Speech: Patient's speech is fluent and nonpressured. Mood/Affect: Patient reports their mood is "ok", affect is congruent and constricted. Suicidality/Homicidality: Patient denies having any homicidal ideation intent or plan. Denies any suicidal ideations intent or plan Perceptions: Patient denies any visual hallucinations and denies any auditory hallucinations Though content/process: Patient endorses significant paranoia, bizarre content, illogical loose associations. Memory and concentration: AOX3, grossly intact for the purposes of this session. Can spell "WORLD" backwards Judgment and insight: poor, improving mildly Assessment Psychosis unspecified, rule out cannabis-induced psychosis versus schizophrenia Cannabis use disorder Nicotine dependence Plan: -Patient continues to meet criteria for inpatient psychiatric admission for symptom stabilization and safety. Patient has medication consent and was placed in patient's chart. Currently awaiting demand for hearing date. -Medications: Continue with paliperidone 3 mg daily at bedtime for psychosis. Patient will need to be transitioned onto long-acting injection. -When necessary Ativan and Haldol for agitation/aggression. -NRT - nicotine gum -SW on board for discharge planning. Encouraged the patient to participate in milieu. will await demand for hearing date.
[2020-07-08] MEDS: ACETAMINOPHEN TAB 325 MG TAB PO PRN ×2 (12:32→16:39)
[2020-07-08] MEDS: MELATONIN 5 MG TABLET PO PRN (21:15)
[2020-07-08] MEDS: PALIPERIDONE 3 MG TAB.ER.24 PO SCH (21:15)
[2020-07-09] MEDS ORDERED: LORazepam 2 MG/ML INJ IM PRN (11:12)
[2020-07-09] MEDS ORDERED: LORazepam 1 MG TAB PO PRN (11:12)
[2020-07-09] MEDS: ACETAMINOPHEN TAB 325 MG TAB PO PRN (11:33)
--- NOTE | 2020-07-09 11:34 | P.PN ---
Progress Note - Text Progress Note Date: 07/09/20 Interval History: Patient was seen wandering the hallways was directable and agreeable to speak with health underwriter this morning. She appeared to be mildly less paranoid today. He continues to be suspicious of health underwriter at times when he is being asked questions especially related to his drug use. Patient claims that he has been taking her medications and they have been helping him thus far. He claimed that his thoughts are becoming more clear and patient was less bizarre today. He continues to focus on discharge and it was again explained to patient the hearing date that needs to occur prior to his discharge. Facility Designer also spoke with patient about long-acting injection. He claims that his mood is "fine" and was constricted and his affect. He denies any anxiety today. At this time patient denies any suicidal or homical ideations, intent or plan. Patient denies any auditory, visual hallucinations. Patient denies any side effects from the medications and has been compliant with meds. Mental Status Exam: General Appearance: Patient appears to be stated age is tall/thin, alert, mildly paranoid today however attempts to cooperate. Patient appears to have improving hygiene and grooming. Behavior: Patient is seated without any agitated behavior. Paranoid, improving mildly Speech: Patient's speech is fluent and nonpressured. Mood/Affect: Patient reports their mood is "good", affect is congruent and constricted. Suicidality/Homicidality: Patient denies having any homicidal ideation intent or plan. Denies any suicidal ideations intent or plan Perceptions: Patient denies any visual hallucinations and denies any auditory hallucinations Though content/process: Patient endorses less paranoia, bizarre content, improving mildly Memory and concentration: AOX3, grossly intact for the purposes of this session. Can spell "WORLD" backwards Judgment and insight: poor, improving mildly Assessment Psychosis unspecified, rule out cannabis-induced psychosis versus schizophrenia Cannabis use disorder Nicotine dependence Plan: -Patient continues to meet criteria for inpatient psychiatric admission for symptom stabilization and safety. Patient has medication consent and was placed in patient's chart. Currently awaiting demand for hearing date. -Medications: Increased paliperidone 6 mg daily at bedtime for psychosis. Patient will need to be transitioned onto long-acting injection. -When necessary Ativan and Haldol for agitation/aggression. -NRT - nicotine gum -SW on board for discharge planning. Encouraged the patient to participate in milieu. will await demand for hearing date.
[2020-07-09] MEDS: MELATONIN 5 MG TABLET PO PRN (20:25)
[2020-07-10] MEDS: PALIPERIDONE 6 MG TAB.ER.24 PO SCH (08:23)
--- NOTE | 2020-07-10 09:48 | P.PN ---
Progress Note - Text Progress Note Date: 07/10/20 Interval History: Patient was seen laying down in his bed this morning and was directable and ag reeable to speak with sports book writer this morning. Patient appeared to be more directable and cooperative with sports book writer today. Patient was endorsing less paranoia today. Patient claims that he has been taking her medications as prescribed and states that "it's helping me trust people more". He claimed that his thoughts are becoming more clear as well. He continues to focus on discharge. He continues to ask about the upcoming court date which is scheduled for July 17. Cherry Cutter spoke with patient about long-acting injection and patient is agreeable to take the loading dose today of Invega Sustenna after reviewing the risks and side effects and benefits with patient. He claims that his mood is "alright" and was constricted and his affect and denies any depression or anxiety today. He claims that he has been going to some of the groups which she has been finding helpful. He states that he has not been talking to anybody on the phone as of lately. At this time patient denies any suicidal or homical ideations, intent or plan. Patient denies any auditory, visual hallucinations. Patient denies any side effects from the medications and has been compliant with meds. Mental Status Exam: General Appearance: Patient appears to be stated age is tall/thin, alert, attempts to cooperate. Patient appears to have improving hygiene and grooming. Behavior: Patient is seated without any agitated behavior. Paranoid, improving mildly Speech: Patient's speech is fluent and nonpressured. Mood/Affect: Patient reports their mood is "alright", affect is congruent and constricted. Suicidality/Homicidality: Patient denies having any homicidal ideation intent or plan. Denies any suicidal ideations intent or plan Perceptions: Patient denies any visual hallucinations and denies any auditory hallucinations Though content/process: Patient endorses less paranoia, bizarre content, improving mildly Memory and concentration: AOX3, grossly intact for the purposes of this session. Can spell "WORLD" backwards Judgment and insight: poor, improving mildly Assessment Psychosis unspecified, rule out cannabis-induced psychosis versus schizophrenia Cannabis use disorder Nicotine dependence Plan: -Patient continues to meet criteria for inpatient psychiatric admission for symptom stabilization and safety. Patient has medication consent and was placed in patient's chart. Currently awaiting demand for hearing date scheduled for 07/17/2020. -Medications: Continue with paliperidone 6 mg daily at bedtime for psychosis. Patient is agreeable to take Invega Sustenna 234 mg IM injection today. -When necessary Ativan and Haldol for agitation/aggression. -NRT - nicotine gum - on board for discharge planning. Encouraged the patient to participate in milieu. will await demand for hearing date scheduled for 07/17/2020.
[2020-07-10] MEDS ORDERED: PALIPERIDONE IM 234 MG/1.5 ML SYG IM ONE (12:00)
[2020-07-10] MEDS: MELATONIN 5 MG TABLET PO PRN (21:03)
[2020-07-11] MEDS: PALIPERIDONE 6 MG TAB.ER.24 PO SCH (08:00)
--- NOTE | 2020-07-11 09:34 | P.PN ---
Progress Note - Text Progress Note Date: 07/11/20 Interval History: Patient was seen sitting in the lounge this morning and was directable and agr eeable to speak with communications writer this morning. Patient appeared to be more directable and cooperative with communications writer today. Patient was endorsing less paranoia today once again. He states that his mood has been "fine" and denied any overnight complaints last night. He states that he was able to sleep throughout the night and likes being on the melatonin as prescribed. He continues to focus on discharge and was asking more questions about his court date. Patient states that he took the Invega Sustenna yesterday and tolerated it well. He did admit to some local pain at the site of injection however that has improved. He denies any depression or anxiety today. He claims that he has been going to some of the groups which she has been finding helpful. At this time patient denies any suicidal or homical ideations, intent or plan. Patient denies any auditory, visual hallucinations. Patient denies any side effects from the medications and has been compliant with meds. Mental Status Exam: General Appearance: Patient appears to be stated age is tall/thin, alert, attempts to cooperate. Patient appears to have improving hygiene and grooming. Behavior: Patient is seated without any agitated behavior. Paranoid, improving mildly Speech: Patient's speech is fluent and nonpressured. Mood/Affect: Patient reports their mood is "fine", affect is congruent and constricted. Suicidality/Homicidality: Patient denies having any homicidal ideation intent or plan. Denies any suicidal ideations intent or plan Perceptions: Patient denies any visual hallucinations and denies any auditory hallucinations Though content/process: Patient endorses less paranoia, improving mildly. Focused on his medications and discharge planning. Memory and concentration: AOX3, grossly intact for the purposes of this session. Can spell "WORLD" backwards Judgment and insight: poor, improving mildly Assessment Psychosis unspecified, rule out cannabis-induced psychosis versus schizophrenia Cannabis use disorder Nicotine dependence Plan: -Patient continues to meet criteria for inpatient psychiatric admission for symptom stabilization and safety. Patient has medication consent and was placed in patient's chart. Currently awaiting demand for hearing date scheduled for 07/17/2020. -Medications: Decreased paliperidone 3 mg daily at bedtime for psychosis. Patient took Invega Sustenna 234 mg IM injection loading dose on 07/10/2020 and will be due for his next injection in 6 days. Continue with melatonin when necessary for insomnia. -When necessary Ativan and Haldol for agitation/aggression. -NRT - nicotine gum -SW on board for discharge planning. Encouraged the patient to participate in milieu. will await demand for hearing date scheduled for 07/17/2020.
[2020-07-11] MEDS: MELATONIN 5 MG TABLET PO PRN (20:16)
[2020-07-12] MEDS: PALIPERIDONE 3 MG TAB.ER.24 PO SCH (08:36)
--- NOTE | 2020-07-12 09:54 | P.PN ---
Progress Note - Text Progress Note Date: 07/12/20 Interval History: Patient was seen sitting in the lounge this morning during group and was direc table and agreeable to speak with automatic typewriter inspector this morning. Patient appeared to be more directable and cooperative with automatic typewriter inspector today. She did not offer over night complaints at all and states that he was able to sleep throughout the night. He claims that his mask has been feeling better now and he is wearing a more on the unit. He also states that he was talking in group about the benefits of being in the hospital and why everyone is here. He continues to focus on discharge and was asking more questions about his court date. Patient states that he spoke with his traffic law attorney yesterday over zoom and asked questions however states that he did not sign anything and will be waiting for the hearing date on Friday. He denies any depression or anxiety today. He claims that he is agreeable to take the next long-acting injection dose on Friday morning. At this time patient denies any suicidal or homical ideations, intent or plan. Patient denies any auditory, visual hallucinations. Patient denies any side effects from the medications and has been compliant with meds. Mental Status Exam: General Appearance: Patient appears to be stated age is tall/thin, alert, attempts to cooperate. Patient appears to have improving hygiene and grooming. Behavior: Patient is seated without any agitated behavior. improving mildly Speech: Patient's speech is fluent and nonpressured. Mood/Affect: Patient reports their mood is "ok", affect is congruent and constricted. Suicidality/Homicidality: Patient denies having any homicidal ideation intent or plan. Denies any suicidal ideations intent or plan Perceptions: Patient denies any visual hallucinations and denies any auditory hallucinations Though content/process: Patient endorses less paranoia, improving mildly. Focused on his medications and discharge planning. Memory and concentration: AOX3, grossly intact for the purposes of this session. Can spell "WORLD" backwards Judgment and insight: poor, improving mildly Assessment Psychosis unspecified, rule out cannabis-induced psychosis versus schizophrenia Cannabis use disorder Nicotine dependence Plan: -Patient continues to meet criteria for inpatient psychiatric admission for symptom stabilization and safety. Patient has medication consent and was placed in patient's chart. Currently awaiting demand for hearing date scheduled for 07/17/2020. -Medications: Continue with paliperidone 3 mg daily at bedtime for psychosis, will be titrating off. Patient took Invega Sustenna 234 mg IM injection loading dose on 07/10/2020 and will be due for his next injection on Friday morning. C ontinue with melatonin when necessary for insomnia. -When necessary Ativan and Haldol for agitation/aggression. -NRT - nicotine gum -SW on board for discharge planning. Encouraged the patient to participate in milieu. will await demand for hearing date scheduled for 07/17/2020. Likely discharge after hearing date on Friday.
[2020-07-12] MEDS: MELATONIN 5 MG TABLET PO PRN (20:04)
[2020-07-13] MEDS: PALIPERIDONE 3 MG TAB.ER.24 PO SCH (08:01)
--- NOTE | 2020-07-13 09:15 | P.PN ---
Progress Note - Text Progress Note Date: 07/13/20 Interval History: Patient was seen sitting in the lounge this morning watching TV alone and was directable and agreeable to speak with expert medical writer this morning. Patient appeared to be directable and cooperative with expert medical writer today. He claims that he's been getting along with other people on the unit. He states that he is trusting more people in terms of staff however states that from the patient's side "there is a lot of people appear with a lot of their own mental problems and I don't necessarily trust him". He states that he has been going to groups and participating as best as he can. He claimed that he is tolerating the medications well and is agreeable to continue taking them. He denies any depression or anxiety today. He claims that he is agreeable to take the next long-acting injection dose on Friday morning. At this time patient denies any suicidal or homical ideations, intent or plan. Patient denies any auditory, visual hallucinations. Patient denies any side effects from the medications and has been compliant with meds. Mental Status Exam: General Appearance: Patient appears to be stated age is tall/thin, alert, attempts to cooperate. Patient appears to have improving hygiene and grooming. Behavior: Patient is seated without any agitated behavior. improving mildly Speech: Patient's speech is fluent and nonpressured. Mood/Affect: Patient reports their mood is "good", affect is congruent and constricted. Suicidality/Homicidality: Patient denies having any homicidal ideation intent or plan. Denies any suicidal ideations intent or plan Perceptions: Patient denies any visual hallucinations and denies any auditory hallucinations Though content/process: Patient endorses less paranoia, improving mildly. Focused on his medications and discharge planning. Memory and concentration: AOX3, grossly intact for the purposes of this session. Can spell "WORLD" backwards Judgment and insight: improving mildly Assessment Psychosis unspecified, rule out cannabis-induced psychosis versus schizophrenia Cannabis use disorder Nicotine dependence Plan: -Patient continues to meet criteria for inpatient psychiatric admission for symptom stabilization and safety. Patient has medication consent and was placed in patient's chart. Currently awaiting demand for hearing date scheduled for 07/17/2020. -Medications: 1 more day of paliperidone 3 mg daily at bedtime for psychosis, and then will be discontinued tomorrow. Patient took Invega Sustenna 234 mg IM injection loading dose on 07/10/2020 and will be due for his next injection on Friday morning. Continue with melatonin when necessary for insomnia. -When necessary Ativan and Haldol for agitation/aggression. -NRT - nicotine gum -SW on board for discharge planning. Encouraged the patient to participate in milieu. will await demand for hearing date scheduled for 07/17/2020. Likely discharge after hearing date on Friday.
[2020-07-13 17:49] LABS: Appearance,Urine Clear (Clear); Bilirubin,Urine Negative (Negative); Blood,Urine Negative (Negative); Color,Urine Colorless; Glucose,Urine (UA) Negative (Negative); Ketones,Urine Negative (Negative); Leukocyte Esterase,Urine Negative (Negative); Nitrite,Urine Negative (Negative); Protein,Urine Negative (Negative); Specific Gravity,Urine 1.003 (1.001-1.035); Urobilinogen,Urine <2.0 mg/dL (<2.0)
[2020-07-13] MEDS: MELATONIN 5 MG TABLET PO PRN (22:33)
[2020-07-14 08:13] VITALS: BMI 22.4
[2020-07-14] MEDS ORDERED: PALIPERIDONE 3 MG TAB.ER.24 PO ONE (09:00)
--- NOTE | 2020-07-14 09:48 | P.PN ---
Progress Note - Text Progress Note Date: 07/14/20 Interval History: Patient was seen sitting in the lounge this morning participating in group and was directable and agreeable to speak with technical document writer this morning. She went on to speak more about what he was learning in group and spoke about being "mindful" and what he thought about it. He also spoke about different coping skills that he is using. Patient appeared to be directable and cooperative with technical document writer today. He was not endorsing any paranoia today and was not endorsing any delusions. He states that he has been going to groups and participating as best as he can. He claimed that he is tolerating the medications well. He denies any depression or anxiety today. He claims that he is agreeable to take the next long-acting injection dose tomorrow morning. At this time patient denies any suicidal or homical ideations, intent or plan. Patient denies any auditory, visual hallucinations. Patient denies any side effects from the medications and has been compliant with meds. Mental Status Exam: General Appearance: Patient appears to be stated age is tall/thin, alert, attempts to cooperate. Patient appears to have improving hygiene and grooming. Behavior: Patient is seated without any agitated behavior. improving mildly Speech: Patient's speech is fluent and nonpressured. Mood/Affect: Patient reports their mood is "ok", affect is congruent and constricted. Suicidality/Homicidality: Patient denies having any homicidal ideation intent or plan. Denies any suicidal ideations intent or plan Perceptions: Patient denies any visual hallucinations and denies any auditory hallucinations Though content/process: Not endorsing any paranoia or delusions. Focused on his medications and discharge planning. Memory and concentration: AOX3, grossly intact for the purposes of this session. Can spell "WORLD" backwards Judgment and insight: improving mildly Assessment Psychosis unspecified, rule out cannabis-induced psychosis versus schizophrenia Cannabis use disorder Nicotine dependence Plan: -Patient continues to meet criteria for inpatient psychiatric admission for symptom stabilization and safety. Patient has medication consent and was placed in patient's chart. Currently awaiting demand for hearing date scheduled for 07/17/2020. -Medications: Today was the last day of by mouth paliperidone. Patient took Invega Sustenna 234 mg IM injection loading dose on 07/10/2020 and will be due for his next injection on Friday. Continue with melatonin when necessary for i nsomnia. -When necessary Ativan and Haldol for agitation/aggression. -NRT - nicotine gum -SW on board for discharge planning. Encouraged the patient to participate in milieu. will await demand for hearing date scheduled for 07/17/2020. Likely discharge after hearing date on Friday.
[2020-07-14] MEDS: MELATONIN 5 MG TABLET PO PRN (20:37)
[2020-07-15 07:04] VITALS: RESP 17
[2020-07-15] MEDS ORDERED: PALIPERIDONE IM 156 MG/ML SYG IM ONE (12:00)
--- NOTE | 2020-07-15 12:22 | P.PN ---
Progress Note - Text Progress Note Date: 07/15/20 Clinical Problems: Psychosis unspecified, rule out cannabis-induced psychosis, rule out schizophrenia, Cannabis use disorder, Nicotine dependence Interim history: Reviewed the medical record and interviewed the patient. He received his second injection of Invega this morning and his last dose of oral Invega. He has a court hearing scheduled for 07/17/[address] Ha will discharge him soon after the court hearing. He denied the need for treatment and believes that he is a victim of mistaken identity. He believes that the police brought him in hospital to have a urine drug test. He alleged that the police kept calling him "Wild" and believes that person should've been brought to the hospital by the police and should be the one admitted to the psychiatric unit and receiving psychiatric treatment. He also complained that staff were calling him Wild up until "a few days ago." Mental status exam: He presented as a tall casually groomed young male with long somewhat unkept hair. He made eye contact and attended the interview. He had a blunted facial expression. He showed no abnormality of psychomotor activity. Speech was spontaneous with normal rate, volume and rhythm. He was slightly irritable but not inappropriately. He did not express suicidal ideation or wishes. He was suspicious but did not express clear paranoid ideation. He had a fixed delusional belief as described above. His thinking was concrete but his associations were coherent and goal directed. Assessment: He is moderately mentally ill and improve from admission. His for compliant with treatment Plan: Continue inpatient treatment. Continue safety precautions. Continue Invega sustena injections monthly. Haldol and lorazepam for anxiety and/or agitation encouraged continued participation in therapeutic groups and activities. Evaluate clinical status response to treatment daily basis.
[2020-07-15] MEDS: MELATONIN 5 MG TABLET PO PRN (21:29)
--- NOTE | 2020-07-16 12:30 | P.PN ---
Progress Note - Text Progress Note Date: 07/16/20 Clinical Problems: Psychosis unspecified, rule out cannabis-induced psychosis, rule out schizophrenia, Cannabis use disorder, Nicotine dependence Interim history: I reviewed the medical record and interviewed the patient. He denied problems or concerns. She stated that he is "doing well." He expects to be discharged after his probate hearing. He did not perseverate about the belief that he is a victim of mistaken identity. Mental status exam: He presented as a tall casually groomed young male who is had long hair was braided. He made eye contact and attended the interview. He had a blunted but bright facial expression. He showed no abnormality of psychomotor activity. Speech was spontaneous with normal rate, volume and rhythm. He affect was bright and stable. He did not express suicidal ideation or wishes. He was not a suspicious as yesterday. His thinking was concrete but his associations were coherent and goal directed. Assessment: He is moderately mentally ill and much improved from admission. He has been compliant with treatment Plan: Continue inpatient treatment. Continue safety precautions. Continue Invega sustena injections monthly. Haldol and lorazepam for anxiety and/or agitation encouraged continued participation in therapeutic groups and activities. Evaluate clinical status response to treatment daily basis.
[2020-07-16 18:02] VITALS: TEMP 98.4
[2020-07-16] MEDS: ACETAMINOPHEN TAB 325 MG TAB PO PRN (20:18)
[2020-07-16] MEDS: MELATONIN 5 MG TABLET PO PRN (20:18)
[2020-07-17 06:26] VITALS: BP 102/61; PULSE 70
--- NOTE | 2020-07-17 10:14 | P.DS ---
Providers Date of admission: 07/06/20 18:08 Expected date of discharge: 07/17/20 Attending physician: Steven Ha MD Consults: 07/06/20 18:11 Consult Physician Routine Consulting Provider: Kady Fernandez Consult Reason/Comments: History and Physical Do you want consulting provider notified?: Yes Primary care physician: Stated None - Discharge Diagnosis(es) (1) Unspecified psychosis Current Visit: Yes Status: Acute Priority: High (2) Cannabis use disorder, moderate, dependence Current Visit: Yes Status: Acute Priority: Medium (3) Nicotine dependence Current Visit: Yes Status: Acute Priority: Low Hospital Course: Admission HPI: Admission note was completed by health technical writer "Patient is a 25-year-old male who currently is homeless and has no kids and is unmarried. Patient presented to the hospital yesterday after after being brought in by the police and according to ER report patient was exhibiting paranoid thoughts about the FBI. ER report also states that patient was on a "mission" and that he believe that Alex Cazares was his brother. Patient was recently discharged from the mental health unit one month ago. Patient claims that after he left the unit he has been "wandering around" the city and state that he was not able to find his car. He also claims that he has been staying at different hotel rooms and sometimes on the streets. Patient states that he was "scared of being lost" and ended up asking the police for help and states that "then they brought me to the hospital". He claims that he only wanted to get a hotel room and did not want to come to the hospital. He admitted to not taking any medications as he states that he went to the counselor for his follow-up appointment and she told him that "you're paperwork is fake and you dont need to take the medications". She then became more paranoid with the health technical writer and became more hostile and argumentative. And he looked at health technical writer's very suspiciously throughout the conversation. Patient admitted to smoking marijuana however stated that "it's none of your business what I should be doing". Patient also mentioned that his urine drug screen was positive for marijuana because "somebody must have implemented it into my urine to set me up". Patient has poor insight and poor judgment and also low frustration tolerance. He claims his sleep has been poor and appetite is poor. Patient denies any suicidal or homicidal ideations intent or plan. At this time patient denies any auditory or visual hallucinations. Patient admits to using marijuana daily and also claims that he smokes cigarettes daily. He denies any other recreational drug use." Hospital course: Upon admission to the unit patient was initially psychotic bizarre and paranoid. Patient was however directable and agreeable to commence treatment. Patient was previously on a deferral and a demand for hearing was filed and scheduled on day of discharge 07/17/2020. Patient did receive a court order for treatment on day of discharge for 60 days inpatient/180 days outpatient. Patient got along well with other patients on the unit and followed unit protocol. Patient was compliant with the medications and denied any side effects throughout hospital course. Patient was started on paliperidone and titrated up to dose of 6 mg by mouth daily and patient was then transitioned onto Invega Sustenna. Patient received his first loading dose of 234 mg Invega Sustenna on 07/10/2020 and received his second dose of 156 mg on 07/15/2020 and tolerated them well. Patient will be due for his next monthly maintenance dose of 117 mg on 08/11/2020 and monthly thereafter. Patient was also placed on melatonin 5 mg daily at bedtime when necessary for insomnia. Patient spoke of his stressors and engaged in therapy both group and individual. Patient was also seen by medical team for history and physical exam. Throughout the course of the hospitalization patient gradually improved with regards to mood, psychosis, paranoia, sleep and became more future oriented with improvement in his insight and judgment. On the day of discharge patient denied any suicidal or homicidal ideations intent or plan denied any auditory or visual hallucinations. Patient endorsed wanting to live for his health and his future. The patient denied any access to guns or weapons. Patient denied any paranoia and did not endorse any delusions. Patient does have a significant history of substance abuse and was counseled on abstaining from all substances including alcohol and marijuana. Patient was offered however declined inpatient substance-abuse rehab. Patient was also counseled on the medications and need for regular compliance and was encouraged to follow-up with their outpatient appointment for mental health and also for primary care. Mental status exam: General Appearance: Patient appears to be tall, thin stated age is alert, pleasant, and cooperative. Patient is in no acute distress and has improved hygiene and grooming Behavior: Patient is calmly seated without any agitated behavior. Speech: Patient's speech is fluent and nonpressured. Mood/Affect: Patient reports their mood is "better", affect is congruent and euthymic. Suicidality/Homicidality: Patient denies having any suicidal or homicidal ideation intent or plan. Perceptions: Patient denies any auditory or visual hallucinations. Though content/process: There is no evidence of any delusional thought content and thought process is linear and goal-directed. Memory and concentration: AOX3, grossly intact for the purposes of this session. Can spell "WORLD" backwards correctly. Judgment and insight: chronically poor, however has improved with guarded prognosis Impression: Psychosis unspecified, rule out cannabis induced psychosis versus schizophrenia Cannabis use disorder Nicotine dependence Plan: -Continue with discharge today as patient has improved and stabilized psychiatrically and is not currently an imminent threat to himself and/or others. Patient will remain at chronically elevated risk for harm to self and/or others due to his substance abuse and chronically poor insight. -Continue medications: Patient received his first loading dose of 234 mg Invega Sustenna on 07/10/2020 and received his second dose of 156 mg on 07/15/2020. Patient will be due for his next monthly maintenance dose of 117 mg on 08/11/2020 and monthly thereafter. Continue with melatonin 5 mg daily at bedtime when necessary for insomnia. -Patient was counseled on the need for medication compliance and appropriate follow-up at mental health and also primary care for medical issues. Patient verbalized understanding and agreed. -Social work to help with discharge today and provide patient with list of shelters and also hotel/motel accommodations in the area. Social work also to arrange for patients follow up appointments with [facility] for psychiatric care along with follow up with primary care provider. -Patient counseled on abstaining from recreational drugs and marijuana and alcohol. Was informed/educated on the adverse effects on their physical and mental health. Patient verbally agreed and understood. Patient was offered substance abuse treatment however declined at this time. -Patient was instructed to return to the hospital or seek immediate medical care if their psychiatric or medical symptoms do worsen or reoccur. Allergies Allergy/AdvReac Type Severity Reaction Status Date / Time No Known Allergies Allergy Verified 07/06/20 14:02 Laboratory Results WBC 6.7 k/uL (3.8-10.6) 07/07/20 10:18 RBC 5.24 m/uL (4.30-5.90) 07/07/20 10:18 Hgb 15.1 gm/dL (13.0-17.5) 07/07/20 10:18 Hct 45.3 % (39.0-53.0) 07/07/20 10:18 MCV 86.6 fL (80.0-100.0) 07/07/20 10:18 MCH 28.8 pg (25.0-35.0) 07/07/20 10:18 MCHC 33.3 g/dL (31.0-37.0) 07/07/20 10:18 RDW 12.7 % (11.5-15.5) 07/07/20 10:18 Plt Count 219 k/uL (150-450) 07/07/20 10:18 MPV 6.8 07/07/20 10:18 Neutrophils % 69 % 07/07/20 10:18 Lymphocytes % 19 % 07/07/20 10:18 Monocytes % 7 % 07/07/20 10:18 Eosinophils % 3 % 07/07/20 10:18 Basophils % 0 % 07/07/20 10:18 Neutrophils # 4.6 k/uL (1.3-7.7) 07/07/20 10:18 Lymphocytes # 1.2 k/uL (1.0-4.8) 07/07/20 10:18 Monocytes # 0.5 k/uL (0-1.0) 07/07/20 10:18 Eosinophils # 0.2 k/uL (0-0.7) 07/07/20 10:18 Basophils # 0.0 k/uL (0-0.2) 07/07/20 10:18 Sodium 138 mmol/L (137-145) 07/07/20 10:18 Potassium 4.7 mmol/L (3.5-5.1) 07/07/20 10:18 Chloride 103 mmol/L (98-107) 07/07/20 10:18 Carbon Dioxide 29 mmol/L (22-30) 07/07/20 10:18 Anion Gap 6 mmol/L 07/07/20 10:18 BUN 17 mg/dL (9-20) 07/07/20 10:18 Creatinine 0.87 mg/dL (0.66-1.25) 07/07/20 10:18 Est GFR (CKD-EPI)AfAm >90 (>60 ml/min/1.73 sqM) 07/07/20 10:18 Est GFR (CKD-EPI)NonAf >90 (>60 ml/min/1.73 sqM) 07/07/20 10:18 Glucose 96 mg/dL (74-99) 07/07/20 10:18 Calcium 9.5 mg/dL (8.4-10.2) 07/07/20 10:18 Total Bilirubin 0.7 mg/dL (0.2-1.3) 07/07/20 10:18 AST 26 U/L (17-59) 07/07/20 10:18 ALT 15 U/L (4-49) 07/07/20 10:18 Alkaline Phosphatase 70 U/L (38-126) 07/07/20 10:18 Total Protein 7.1 g/dL (6.3-8.2) 07/07/20 10:18 Albumin 4.5 g/dL (3.5-5.0) 07/07/20 10:18 Urine Color Colorless 07/13/20 17:15 Urine Appearance Clear (Clear) 07/13/20 17:15 Urine pH 7.0 (5.0-8.0) 07/13/20 17:15 Ur Specific [place] 1.003 (1.001-1.035) 07/13/20 17:15 Urine Protein Negative (Negative) 07/13/20 17:15 Urine Glucose (UA) Negative (Negative) 07/13/20 17:15 Urine Ketones Negative (Negative) 07/13/20 17:15 Urine Blood Negative (Negative) 07/13/20 17:15 Urine Nitrite Negative (Negative) 07/13/20 17:15 Urine Bilirubin Negative (Negative) 07/13/20 17:15 Urine Urobilinogen <2.0 mg/dL (<2.0) 07/13/20 17:15 Ur Leukocyte Esterase Negative (Negative) 07/13/20 17:15 Urine Opiates Screen Not Detected (NotDetected) 07/06/20 14:16 Ur Oxycodone Screen Not Detected (NotDetected) 07/06/20 14:16 Urine Methadone Screen Not Detected (NotDetected) 07/06/20 14:16 Ur Propoxyphene Screen Not Detected (NotDetected) 07/06/20 14:16 Ur Barbiturates Screen Not Detected (NotDetected) 07/06/20 14:16 U Tricyclic Antidepress Not Detected (NotDetected) 07/06/20 14:16 Ur Phencyclidine Scrn Not Detected (NotDetected) 07/06/20 14:16 Ur Amphetamines Screen Not Detected (NotDetected) 07/06/20 14:16 U Methamphetamines Scrn Not Detected (NotDetected) 07/06/20 14:16 U Benzodiazepines Scrn Not Detected (NotDetected) 07/06/20 14:16 Urine Cocaine Screen Not Detected (NotDetected) 07/06/20 14:16 U Marijuana (THC) Screen Detected (NotDetected) H 07/06/20 14:16 Coronavirus (PCR) Not Detected (Not Detectd) 07/06/20 15:25 Vital Signs Temp 98.4 F 07/17/20 06:26 Pulse 70 07/17/20 06:26 Resp 17 07/16/20 06:25 BP 102/61 07/17/20 06:26 Pulse Ox 100 07/16/20 06:25 Intake & Output 07/16/20 07/17/20 07/17/20 18:59 06:59 18:59 Weight 82.1 kg Patient Condition at Discharge: Stable Plan - Discharge Summary Discharge Rx Participant: No New Discharge Prescriptions: New Paliperidone Palmitate [Invega Sustenna] 117 mg IM QMONTHLY #1 syr Melatonin 5 mg PO HS PRN 30 Days tablet PRN Reason: Insomnia Nicotine Polacrilex [Nicorette] 2 mg BUCCAL Q4HR PRN 14 Days gum PRN Reason: Nicotine Cravings Acetaminophen Tab [Tylenol] 650 mg PO Q4HR PRN tab PRN Reason: Pain/Discomfort Discharge Medication List Acetaminophen Tab [Tylenol] 650 mg PO Q4HR PRN tab 07/17/20 [Rx] Melatonin 5 mg PO HS PRN 30 Days tablet 07/17/20 [Rx] Nicotine Polacrilex [Nicorette] 2 mg BUCCAL Q4HR PRN 14 Days gum 07/17/20 [Rx] Paliperidone Palmitate [Invega Sustenna] 117 mg IM QMONTHLY #1 syr 07/17/20 [Rx] Follow up Appointment(s)/Referral(s): None,Stated [Primary Care Provider] - 1-2 days [facility] [NON-STAFF] - 1 Week Patient Instructions/Handouts: How to Stop Smoking (DC), Cannabis Abuse (DC), Psychotic Disorder (DC) Activity/Diet/Wound Care/Special Instructions: Activity and diet as tolerated. Avoid the use of street drugs and alcohol. Take all medications as prescribed. When you are in need of refills on your medications please contact your medical provider and/or outpatient psychiatrist to have this done. Please go to scheduled outpatient appointment for aftercare treatment. If symptoms return or become worse, call the crisis line at and/or go to the nearest emergency room for evaluation. Discharge Disposition: OTHER INSTITUTION NOT DEFINED
== END 2020-07-17 14:20 | disposition home or self-care (01) | DRG 885 ==
LOC: EC 12:57 → 3MHU 18:08
PROVIDERS: ADMIT Psychiatry & Neurology Psychiatry; ATTEND Psychiatry & Neurology Psychiatry
DX: F29 Unspecified psychosis not due to a substance or known physiological condition (principal); Z91.128 Patient's intentional underdosing of medication regimen for other reason; F12.20 Cannabis dependence, uncomplicated; Z20.828 Contact with and (suspected) exposure to other viral communicable diseases; G47.00 Insomnia, unspecified; Z91.5 Personal history of self-harm; H54.61 Unqualified visual loss, right eye, normal vision left eye; T50.906A Underdosing of unspecified drugs, medicaments and biological substances, initial encounter; F17.210 Nicotine dependence, cigarettes, uncomplicated; Z71.6 Tobacco abuse counseling; Z71.51 Drug abuse counseling and surveillance of drug abuser; Z90.49 Acquired absence of other specified parts of digestive tract; Z59.0 Homelessness; Z87.19 Personal history of other diseases of the digestive system; Z90.89 Acquired absence of other organs; Z98.890 Other specified postprocedural states; Z81.8 Family history of other mental and behavioral disorders
CPT/HCPCS: 80053; 80306; 81003; 82075; 85025; 87635; 99285

== ENCOUNTER 2020-07-17 19:23 | Emergency (ER) | payer OTHER ==
[2020-07-17 19:28] VITALS: RESP 18; TEMP 98.3
[2020-07-17] MEDS ORDERED: ACETAMINOPHEN TAB 325 MG TAB PO STA (19:45)
--- NOTE | 2020-07-17 20:34 | XR ---
Right foot HISTORY: Pain 3 views of the right foot Bone mineralization, joint spaces and alignment are maintained. IMPRESSION: No fracture or dislocation.
--- NOTE | 2020-07-17 20:56 | ED ---
General Adult HPI - General Chief complaint: Extremity Problem,Nontraumatic Stated complaint: R Foot Pain Time Seen by Provider: 07/17/20 19:32 Source: patient, RN notes reviewed, old records reviewed Mode of arrival: ambulatory Limitations: no limitations - History of Present Illness Initial comments: 25-year-old male patient with the pain. Patient reports that he has been walking around a lot the last week and very active. Patient reports that he is having pain in his right fourth metatarsal region. He denies any other acute complaints. Systemic: Pt denies fatigue, fever/chills, rash. Pt denies weakness, night sweats, weight loss. Neuro: Pt denies headache, visual disturbances, syncope or pre-syncope. HEENT: Pt denies ocular discharge or irritation, otalgia, rhinorrhea, pharyngitis or notable lymphadenopathy. Cardiopulmonary: Pt denies chest pain, SOB, heart palpitations, dyspnea on exertion. Abdominal/GI: Pt denies abdominal pain, n/v/d. : Pt denies dysuria, burning w/ urination, frequency/urgency. Denies new onset urinary or bowel incontinence. MSK: Pt denies myalgia, loss of strength or function in extremities. Neuro: Pt denies new onset weakness, paresthesias. - Related Data Home Medications Medication Instructions Recorded Confirmed No Known Home Medications 07/17/20 07/17/20 Allergies Allergy/AdvReac Type Severity Reaction Status Date / Time No Known Allergies Allergy Verified 07/17/20 20:08 Review of Systems ROS Statement: Those systems with pertinent positive or pertinent negative responses have been documented in the HPI. ROS Other: All systems not noted in ROS Statement are negative. Past Medical History Past Medical History: No Reported History Additional Past Medical History / Comment(s): Blind in right eye History of Any Multi-Drug Resistant Organisms: None Reported Past Surgical History: Appendectomy, Hernia Repair, Tonsillectomy Past Anesthesia/Blood Transfusion Reactions: No Reported Reaction Past Psychological History: No Psychological Hx Reported Smoking Status: Current every day smoker Past Alcohol Use History: Occasional Past Drug Use History: Marijuana - Past Family History FAMILY Family Medical History: No Reported History General Exam - General Exam Comments Initial Comments: Constitutional: NAD, AOX3, Pt has pleasant affect. HEENT: NC/AT, trachea midline, neck supple, no lymphadenopathy. External ears appear normal, without discharge. Mucous membranes moist. Eyes PERRLA, EOM intact. There is no scleral icterus. No pallor noted. Cardiopulmonary: RRR, no murmurs, rubs or gallops, no JVD noted. Lungs CTAB in anterior and posterior meek. No peripheral edema. Abdominal exam: Abdomen soft and non-distended. Abdomen non-tender to palpation in all 4 quadrants. Bowel sounds active in LLQ. No hepatosplenomegaly. No ecchymosis Neuro: CN II-XII grossly intact. No nuchal rigidity. No raccon eyes, no hudson sign, no hemotympanum. No cervical spinal tenderness. MSK: Mild tenderness to the right foot the fourth metatarsal region dorsally. Distal pulses are intact and equal. Plain film was negative. Patient is able to bear weight without difficulty. No other areas of tenderness. No skin changes. Limitations: no limitations Course Vital Signs 07/17/20 07/17/20 19:25 19:58 Temperature 98.3 F Pulse Rate 140 H 109 H Respiratory 18 Rate Blood Pressure 131/80 O2 Sat by Pulse 98 Oximetry Medical Decision Making - Medical Decision Making 24-year-old male patient ED for right foot pain. Patient vital signs are stable, afebrile. Mild tenderness to right fourth metatarsal region. Plain film was negative. Patient will be placed in an ankle stirrup brace, will be advised to use crutches and follow up with orthopedic consult tomorrow. Csae discussed with Dr. Sheriff. Disposition Clinical Impression: Foot sprain Disposition: HOME SELF-CARE Condition: Stable Instructions (If sedation given, give patient instructions): Foot Sprain (ED) Additional Instructions: Follow up with PCP and orthopedic consult tomorrow. Use crutches, do not bear weight on right lower extremity. Continue to wear ankle stirrup brace. Return to ED with any worsening symptoms. Is patient prescribed a controlled substance at d/c from ED?: No Referrals: None,Stated [Primary Care Provider] - 1-2 days Kishore Meraz PAC [PHYSICIAN INVENTORY CONTROL COORDINATOR] - 1-2 days Ara Lundberg MD [REFERRING] - 1-2 days
--- NOTE | 2020-07-17 21:04 | ED ---
Medical Decision Making - Medical Decision Making Clarification patient was placed in post op walking shoe now ankle stirrup brace. Will be discharged with outpatient follow up. Disposition Clinical Impression: Foot sprain Disposition: HOME SELF-CARE Condition: Stable Instructions (If sedation given, give patient instructions): Foot Sprain (ED) Additional Instructions: Follow up with PCP and orthopedic consult tomorrow. Use crutches as needed, may bear weight as tolerated. Return to ED with any worsening symptoms. Is patient prescribed a controlled substance at d/c from ED?: No Referrals: Ara Lundberg MD [REFERRING] - 1-2 days Kishore Meraz PAC [PHYSICIAN LASTING MACHINE OPERATOR] - 1-2 days None,Stated [Primary Care Provider] - 1-2 days
[2020-07-17 21:15] VITALS: BP 127/65; PULSE 107
== END 2020-07-17 21:09 | disposition home or self-care (01) ==
LOC: EC 19:23
DX: S93.609A Unspecified sprain of unspecified foot, initial encounter (principal); H54.61 Unqualified visual loss, right eye, normal vision left eye; F17.200 Nicotine dependence, unspecified, uncomplicated; X58.XXXA Exposure to other specified factors, initial encounter
CPT/HCPCS: 99284